=== PATIENT | female | born 1945 | race Caucasian/White ===

== ENCOUNTER 2021-03-16 11:29 | Emergency (ER) | payer MEDICARE, BC ==
[~2021-03-16] VITALS: Ht 157.5 cm; Wt 88.5 kg
[~2021-03-16 11:29] MED LIST: ASPIRIN CHEW81 MG PO; ATENOLOL50 MG; CETIRIZINE HCL10 M1; FISH OIL300 MG; FLONASE16 GM; LEVOTHYROXINE75 MCG PO; LIPITOR20 MG; PROTONIX IV40 MG PO; SUCRALFATE1 GM PO; calci
[2021-03-16] MEDS ORDERED: CASIRIVIMAB/IMDEVIMAB 10 ML in SODIUM CHLORIDE 0.9% 100 ML IV ONE (12:15)
[2021-03-16 13:16] VITALS: BP 128/82
== END 2021-03-16 13:19 | disposition home or self-care (01) ==
LOC: ER 11:35
DX: R05 Cough (principal); U07.1 COVID-19; I10 Essential (primary) hypertension; E78.5 Hyperlipidemia, unspecified; K21.9 Gastro-esophageal reflux disease without esophagitis; F32.9 Major depressive disorder, single episode, unspecified
CPT/HCPCS: 99283